=== PATIENT | male | born 2000 | race Hispanic/Latino ===

== ENCOUNTER 2020-03-28 08:55 | Emergency (ER) | payer OTHER ==
[2020-03-28] MEDS ORDERED: KETOROLAC TROMETHAMINE 60 MG/2 ML VIAL ONE (09:26)
[2020-03-28 10:14] LABS: BASOPHILS % (AUTO) 0.4 % (0.0-5.0); EOSINOPHILS % (AUTO) 0.7 % (0.0-8.0); HEMATOCRIT 44.5 % (42-54); LYMPHOCYTES % (AUTO) 31.8 % (21.0-51.0); MEAN CORPUSCULAR HEMOGLOBIN 29.9 pg (27.0-33.0); MEAN CORPUSCULAR HGB CONC 34.6 g/dL (32.0-36.0); MEAN CORPUSCULAR VOLUME 86.4 fL (80-100); MONOCYTES % (AUTO) 6.5 % (3.0-13.0); PLATELET COUNT (AUTO) 236 K/uL (130-400); RED BLOOD CELL COUNT(AUTO) 5.15 MIL/uL (4.50-6.20); RED CELL DISTRIBUTION WIDTH 12.3 % (11.0-15.5); WHITE BLOOD COUNT (AUTO) 7.4 K/uL (4.8-10.8)
[2020-03-28 10:20] LABS: POTASSIUM 3.5 mmol/L (3.5-5.1)
[2020-03-28] MEDS ORDERED: IOHEXOL-350 75 ML VIAL IV ONE (10:20)
[2020-03-28 10:25] LABS: ALBUMIN 3.8 g/dL (3.5-5.0); BILIRUBIN,TOTAL 0.4 mg/dL (0.2-1.0); TOTAL PROTEIN, SERUM 6.9 g/dL (6.0-8.3)
[2020-03-28] MEDS ORDERED: ONDANSETRON HCL 4 MG/2 ML VIAL ONE ×3 (10:30→16:43)
[2020-03-28] MEDS ORDERED: MORPHINE SULFATE 4 MG/1ML SYG ONE ×3 (10:31→16:43)
[2020-03-28] MEDS ORDERED: SODIUM CHLORIDE 0.9% 1000ML 2,000 ML IV ONE (12:26)
[2020-03-28] MEDS ORDERED: PROPOFOL 10 MG/ML 20ML VIAL IV ONE (12:26)
[2020-03-28 15:09] LABS: APPEARANCE,URINE Clear (CLEAR); BILIRUBIN,URINE Negative (NEGATIVE); COLOR,URINE Yellow (YELLOW); GLUCOSE, URINE (UA) Negative (NEGATIVE); KETONES,URINE Negative (NEGATIVE); LEUKOCYTE ESTERASE ,URINE Negative (NEGATIVE); NITRATE,URINE Negative (NEGATIVE); OCCULT BLOOD,URINE Negative (NEGATIVE); PH,URINE 5.5 (5.0-8.0); PROTEIN,URINE Negative (NEGATIVE); UROBILINOGEN,URINE 0.2 mg/dL (0.2-1.0)
[2020-03-28 15:16] LABS: AMPHET/METH SCREEN,URINE NEGATIVE (NEGATIVE); BARBITURATE SCREEN, URINE NEGATIVE (NEGATIVE); BENZODIAZEPINES SCREEN,URINE NEGATIVE (NEGATIVE); CANNABINOID SCREEN,URINE POSITIVE (NEGATIVE); COCAINE SCREEN,URINE NEGATIVE (NEGATIVE); OPIATE SCREEN,URINE POSITIVE (NEGATIVE); PHENCYCLIDINE SCREEN,URINE NEGATIVE (NEGATIVE)
== END 2020-03-28 19:09 | disposition short-term general hospital (02) ==
LOC: EDH 08:55
DX: S32.401A Unspecified fracture of right acetabulum, initial encounter for closed fracture (principal); S73.014A Posterior dislocation of right hip, initial encounter; S01.111A Laceration without foreign body of right eyelid and periocular area, initial encounter; S51.812A Laceration without foreign body of left forearm, initial encounter; I10 Essential (primary) hypertension; Z20.828 Contact with and (suspected) exposure to other viral communicable diseases; Z72.0 Tobacco use; V49.49XA Driver injured in collision with other motor vehicles in traffic accident, initial encounter; Y93.89 Activity, other specified; Y92.488 Other paved roadways as the place of occurrence of the external cause; Y99.8 Other external cause status
CPT/HCPCS: 27250; 36415; 71045; 72170; 73502; 73552; 73590; 74177; 80053; 80305; 81003; 85025; 86850; 86900; 86901; 87426; 96361; 96372; 96374; 96375; 99152; 99153; 99285; J1885; J2270 ×3; J2405 ×3; J2704; J7030; Q9967; U0003